=== PATIENT | female | born 1990 | race Caucasian/White ===

== ENCOUNTER 2019-01-18 14:29 | Emergency (ER) | payer OTHER ==
--- NOTE | 2019-01-18 15:34 | RAD ---
Exam:Right foot 3 views HISTORY: Twisting injury. Pain. COMPARISON: None FINDINGS: Lisfranc alignment is maintained. Joint spaces are preserved. No fracture. No cortical irre gularity. No periosteal reaction. IMPRESSION: Unremarkable 3 views right foot. No fracture.
--- NOTE | 2019-01-18 15:35 | RAD ---
Exam: XR Ankle Rt 3 View STANDARD HISTORY: Twisted right ankle while walking down steps. Injury to right ankle. COMPARISON: None FINDINGS: The ankle mortise is congruent. There is a tiny curvilinear osseous density seen adjacent to the base of the right fifth metatarsal l ikely to a tiny avulsion injury. No fracture, dislocation, or other osseous abnormality is seen involving the right ankle. IMPRESSION: Suggestion of tiny avulsion injury seen at the proximal aspect base of the right fifth metatarsal. Co rrelation for point tenderness in this region is recommended.
[2019-01-18] MEDS ORDERED: Ibuprofen 800 MG TAB ONE (15:54)
== END 2019-01-18 15:58 | disposition home or self-care (01) ==
LOC: ERS 14:29
DX: S92.351A Displaced fracture of fifth metatarsal bone, right foot, initial encounter for closed fracture (principal); W10.9XXA Fall (on) (from) unspecified stairs and steps, initial encounter